=== PATIENT | male | born 1970 | race Caucasian/White ===

== ENCOUNTER 2021-01-21 09:26 | Emergency (ER) | payer BC ==
[~2021-01-21] VITALS: Ht 190.5 cm; Wt 86.2 kg
[2021-01-21 09:32] VITALS: BP 118/87
[2021-01-21] MEDS ORDERED: TDAP [DIPH/PERTUSSIS/TET] 0.5 ML VIAL IM ONE ×2 (09:47→10:00)
[2021-01-21] MEDS ORDERED: BENZOIN COMPOUND TINCT 60 ML BOTTLE ONE (09:50)
--- NOTE | 2021-01-21 10:08 | NUR ---
Patient discharged to home in stable condition. Written and verbal after care instructions given. Patient verbalizes understanding of instruction.
== END 2021-01-21 10:08 | disposition home or self-care (01) ==
LOC: ER 09:31
DX: S61.012A Laceration without foreign body of left thumb without damage to nail, initial encounter (principal); W26.8XXA Contact with other sharp object(s), not elsewhere classified, initial encounter; Y93.G1 Activity, food preparation and clean up; Y92.89 Other specified places as the place of occurrence of the external cause; Y99.8 Other external cause status
CPT/HCPCS: 12001; 90471; 90715; 99283; A6403 ×2